=== PATIENT | male | born 1955 | race Caucasian/White ===

== ENCOUNTER 2023-02-21 13:51 | Emergency (ER) | payer MEDICARE, SELFPAY ==
--- NOTE | ~2023-02-21 | XR_ITS ---
EXAM: XR wrist LT min 3V DATE: 02/21/2023 14:51 HISTORY: FALL AFTER TRIPPING OVER DOG . COMPARISON: X-ray hand same date. FINDINGS: Normal mineralization. Chronic appearing oblique fracture of the proximal fifth metacarpal , mildly displaced, with a small chronic appearing fragment medially. No definite acute fracture or d islocation. No lytic or blastic lesion. Scattered osteoarthritis, moderate at the trapeziometacarpal and triscaphe joints. No erosion or periosteal change. Soft tissues within normal limits. IMPRESSION: No acute osseous finding in the left wrist. Reviewed, dictated and finalized at location K.
--- NOTE | ~2023-02-21 | XR_ITS ---
EXAM: XR hand LT min 3V DATE: 02/21/2023 14:22 HISTORY: FALL, TRIP OVER DOG, POSTERIOR BRUISING TO HAND . COMPARISON: None available. FINDINGS: Normal mineralization. Obliquely oriented fracture through the base of the fifth metacarpa l, with sclerotic margins. No lytic or blastic lesion. Mild polyarticular osteoarthritis. No erosion or periosteal change. Soft tissues within normal limits. IMPRESSION: Old appearing nonunited left fifth metacarpal base fracture. Reviewed, dictated and finalized at location K.
[2023-02-21 14:13] VITALS: BP 128/80; PULSE 129; RESP 18; TEMP 37.6; O2SAT 97
--- NOTE | 2023-02-21 14:41 | ED.UPPEXIN ---
HPI - Extremity Injury (Upper) General Chief Complaint: Extremity Injury, Upper Stated Complaint: Left Hand Pain Time Seen by Provider: 02/21/23 14:41 Source: patient Mode of arrival: ambulatory Limitations: no limitations History of Present Illness HPI narrative: 67 yo M presents with c/o L wrist pain and swelling, abrasion to nose. Pt states he fell last night after tripping over his dog. pt walking dog, dog is blind. Pt states was looking up at [place] to see if it looked like it was going to rain and his dog walked in front of him. Pt states put hands out in front of him to catch his fall and scrapped nose on sidewalk. Denies hitting head, no LOC. Was able to get up on his own. States went back inside and sat down recliner to watch TV and later wiped his nose and realized it was bleeding. States he cleaned it with soap and water. reports bilateral wrist pain from osteoarthritis. states L wrist pain worse today. concerned for fracture. ambulatory with steady gait. All systems reviewed and negative except as noted above. Related Data Home Medications Medication Instructions Recorded Confirmed rosuvastatin 10 mg tablet 10 mg PO HS 02/21/23 02/21/23 Allergies Allergy/AdvReac Type Severity Reaction Status Date / Time amoxicillin [From Amoxil] Allergy Hives Verified 02/21/23 14:32 Review of Systems Review of Systems: CONSTITUTIONAL: Denies fever, chills, or sweats. EYES: Denies visual changes, redness, or discharge. ENT: Denies rhinorrhea, congestion, sore throat, or otalgia. CARDIOVASCULAR: Denies chest pain, palpitations, or edema. RESPIRATORY: Denies cough or dyspnea. GASTROINTESTINAL: Denies abdominal pain, nausea, vomiting, or diarrhea. GENITOURINARY: Denies dysuria or hematuria. SKIN: Denies rash or itching. MUSCULOSKELETAL: Reports pain and swelling to left wrist. Reports pain with movement. NEUROLOGIC: Denies headache, numbness, or weakness. PSYCHIATRIC: Denies anxiety or depression. All other systems reviewed are negative, except as documented in HPI. PMFSH Comments At time of signature, agree with nursing past medical, surgical, social and family history. There is no relevant family history pertinent to the presenting complaint. Exam Narrative: GENERAL: This is a well-nourished, well-developed patient, in no apparent distress. HEAD: normocephalic, atraumatic. EYES: PERRL. Sclera clear/white. Normal extraocular motions. EARS: External ears normal NOSE: Abrasion to left nose without swelling or deformity. NECK: Neck supple, non-tender without lymphadenopathy, masses or thyromegaly. CARDIOVASCULAR: Regular rate and rhythm without murmurs, gallops, or rubs. RESPIRATORY: Clear to auscultation. Breath sounds equal bilaterally. No wheezes, rales, or rhonchi. SKIN: warm, Dry, intact with no suspicious lesions or rash, good texture and turgor. NEURO: awake, alert, and oriented to person, place and time. There were no obvious focal neurologic abnormalities. EXTREMITIES: tenderness to distal aspect L ulnar and radius with mild swelling. no deformity. pain with flexion and extension. no instability noted. Course Course Level of Care: Express Care Visit Vital Signs Vital signs: Vital Signs Temperature 37.6 C 02/21/23 14:13 Pulse Rate 129 H 02/21/23 14:13 Respiratory Rate 18 02/21/23 14:13 Blood Pressure 128/80 02/21/23 14:13 Pulse Oximetry 97 02/21/23 14:13 Oxygen Delivery Room Air 02/21/23 14:13 Temperature 37.6 C 02/21/23 14:13 Pulse Rate 118 H 02/21/23 15:07 Respiratory Rate 18 02/21/23 14:13 Blood Pressure 128/80 02/21/23 14:13 Pulse Oximetry 97 02/21/23 14:13 Oxygen Delivery Room Air 02/21/23 14:13 reviewed MDM - Extremity Injury (Upper) MDM Narrative Medical decision making narrative: discussed xray results with pt. neg for fracture. pt wearing wrist splitn from home. recommend he continue to wear splint for the next week. follow up with
[2023-02-21 15:07] VITALS: PULSE 118
== END 2023-02-21 15:08 | disposition home or self-care (01) ==
PROVIDERS: Emergency Provider Nurse Practitioner Family; PCP Nurse Practitioner Family
DX: S00.31XA Abrasion of nose, initial encounter (principal); W01.0XXA Fall on same level from slipping, tripping and stumbling without subsequent striking against object, initial encounter; S63.502A Unspecified sprain of left wrist, initial encounter; E78.00 Pure hypercholesterolemia, unspecified; M19.90 Unspecified osteoarthritis, unspecified site
CPT/HCPCS: 73110; 73130; 99213; G0463

== ENCOUNTER 2024-05-04 12:30 | Outpatient (RCR) | payer MEDICARE, SELFPAY ==
--- NOTE | 2024-03-08 15:29 | OPREHPOC ---
Outpatient Therapy Plan of Care This is a Multidisciplinary Plan of Care that may contain components documented by all disciplines (PT, OT, and ST.) PT Problem 1 PT Problem #1 Knowledge Deficit PT Goal 1 Goal [place] with HEP Target Visit 4 PT Problem 2 PT Problem #2 Impaired Strength PT Goal 1 Goal Improve R shoulder flexion to 4+/5 to improve active lifting ability Target Visit 8 PT Goal 2 Goal Improve R shoulder external rotation strength to 5 /5 to improve shoulder stability Target Visit 8 PT Problem 3 PT Problem #3 Impaired Range of Motion PT Goal 1 Goal Improve R shoulder flexion ROM to 170 degrees without pain Target Visit 8 PT Goal 2 Goal Improve R shoulder internal rotation to 70 degrees to reduce posterior capsule restriction Target Visit 8
--- NOTE | 2024-03-08 15:29 | PTOPEVAL1 ---
Assessment and note entered by Jeremy Landers, PT Evaluation Information Assessment Status Evaluation Diagnosis Rotator cuff tear ICD-10 Condition Codes (PT) M25.511 Onset 5+ years Subjective Information Reports that he has had off and on shoulder pain for years. At time it is fine, but at times it is debilitating. Most recent flare up was about 6 weeks ago. history of trauma approximately 15 years ago. He is right handed. He is able to carry below shoulder level, but over shoulder and away from body causes a lot of pain. Reported Pain Level Pain Score 0: Self Report Assessment PT Clinical Summary Patient presents with signs and symptoms consistent with chronic shoulder pain and shoulder impingement. At this time integrity of shoulder musculature seems solid as he is able to maintain contractions with minimal pain. Will benefit form skilled therapy to improved capsular mobility and postural strength for group home functional independence and injury prevention. Plan of Care Interventions Electrical Stimulation,Hot Pack/Cold Pack,Manual Therapy,Neuro Re-education,Therapeutic Activities, Therapeutic Exercise PT Services Indicated Yes Treatment Frequency and 1-2x/week for 8 visits Duration These treatments will address the objective and functional deficits as defined above. The patient will be advanced safely and appropriately in order for the patient to progress towards his/her prior level of function. Additional exercises will be introduced and as well as a comprehensive home exercise program upon discharge, if needed, ?to ensure carryover of functional gains achieved in the clinic. This treatment plan has been reviewed and agreement upon by the patient.
--- NOTE | 2024-03-28 14:06 | PCPTNOTE ---
No call no show, reason unknown. AKTommy
--- NOTE | 2024-03-31 11:53 | PCPTNOTE ---
Pt. called and left a voice message cancelling his appointment. Pt. did not give a reason. Emiliano Espana, MPT
--- NOTE | 2024-04-21 13:23 | PCPTNOTE ---
Called and canceled due to schedule conflict. AKS
--- NOTE | 2024-04-26 13:21 | PCPTNOTE ---
Patient was a No Show/No call for today's therapy visit.
--- NOTE | 2024-05-04 13:06 | PTOPDC ---
Assessment and note entered by Bibiana Macdonald, PT Discharge Report Assessment Status Discharge Diagnosis Rotator cuff tear ICD-10 Condition Codes (PT) M25.511 Onset 5+ years Subjective Information shoulder is doing better; the stretches are helping; am doing everything at home, have to watch how I move my arm to avoid that painful spot Reported Pain Level Pain Score 0: Self Report Additional Pain Score Comments sometimes, have twinges of pain with reaching forward to 2/10; Assessment PT Clinical Summary Naveen has received a total of 3 PT sessions, from March 08 to today. He called and canceled 2 and did not show for 2 appointments. He has improved since the evaluation with decreased pain rating, increase active shoulder flexion, abduction and ER ranges of motion and strength. Education completed for HEP and posture correction Discharge PT services. The goals were partially met. He is to continue with HEP. Plan of Care PT Services Indicated No
== END 2024-05-04 13:50 | disposition home or self-care (01) ==
LOC: ANHPT 12:30
PROVIDERS: Visit Provider Orthopaedic Surgery
DX: M75.101 Unspecified rotator cuff tear or rupture of right shoulder, not specified as traumatic (principal)
CPT/HCPCS: 97110; 97140; 97161; 97530